=== PATIENT | male | born 1970 | race African-American/Black ===

== ENCOUNTER 2018-01-01 23:30 | Emergency (ER) | payer BC ==
[~2018-01-01] VITALS: Ht 185.4 cm; Wt 95.0 kg
[2018-01-01] MEDS: MORPHINE SULFATE 4 MG/ML CPJ (NOT FOR IM USE) IV STA (00:05)
[2018-01-01] MEDS: TETANUS, DIPHTHERIA, PERTUSSIS VAC/PF 0.5ML (>7YR OLD) IM ONE (00:10)
[2018-01-01] MEDS: CEFAZOLIN 1000MG PREMIX 50 ML IV ONE (00:13)
[2018-01-02] MEDS: MORPHINE SULFATE 4 MG/ML CPJ (NOT FOR IM USE) IV STA (00:05)
[2018-01-02 00:10] LABS: HEMOGLOBIN. 12.9 g/dL (14.0-18.0); MEAN CORPUSCULAR HEMOGLOBIN 33.2 pg (28.0-32.0); MEAN CORPUSCULAR VOLUME 97.6 fL (80.0-94.0); MEAN PLATELET VOLUME 8.1 fl (7.4-10.4); PLATELET 292 x1000/uL (130-400); RED BLOOD CELL COUNT 3.89 mill/uL (4.7-6.1); RED CELL DISTRIBUTION WIDTH 12.7 % (11.6-14.6)
[2018-01-02] MEDS: TETANUS, DIPHTHERIA, PERTUSSIS VAC/PF 0.5ML (>7YR OLD) IM ONE (00:10)
[2018-01-02 00:13] LABS: CHLORIDE 105 mEq/L (98-107)
[2018-01-02] MEDS: CEFAZOLIN 1000MG PREMIX 50 ML IV ONE (00:13)
[2018-01-02 00:52] LABS: ATYPICAL LYMPHOCYTES 5; PLATELET ESTIMATE NORMAL
[2018-01-02 02:21] VITALS: BP 128/90
== END 2018-01-02 02:38 | disposition home or self-care (01) ==
LOC: ER 23:30
DX: S91.002A Unspecified open wound, left ankle, initial encounter (principal); I10 Essential (primary) hypertension; W34.00XA Accidental discharge from unspecified firearms or gun, initial encounter; Y93.01 Activity, walking, marching and hiking; Y92.89 Other specified places as the place of occurrence of the external cause
CPT/HCPCS: 36415; 73590; 73610; 80053; 85025; 86850; 86900; 86901; 90471; 90715; 96365; 96375; 99285; J0690; J2270; X7700; Z7610